=== PATIENT | female | born 1985 | race Hispanic/Latino ===

== ENCOUNTER → 2021-10-29 | Outpatient (CLI) | payer OTHER | END | disposition home or self-care (01) | LOC: SHCH 11:57 | PROVIDERS: ATTEND Internal Medicine Cardiovascular Disease | DX: R00.1 Bradycardia, unspecified (principal); R00.2 Palpitations; R42 Dizziness and giddiness; E11.9 Type 2 diabetes mellitus without complications | CPT/HCPCS: 93306 ==